=== PATIENT | female | born 2000 | race Caucasian/White ===

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

== ENCOUNTER → 2019-01-28 05:50 | Observation (INO) ==
[2019-01-28 03:53] LABS: Bilirubin,Urine Negative (Negative); Blood,Urine Negative (Negative); Clarity,Urine Clear (Clear); Color,Urine Yellow (Yellow); Glucose,Urine (UA) Normal (Normal); Ketones,Urine Negative (Negative); Leukocyte Esterase,Urine Small (Negative); Nitrite,Urine Negative (Negative); PH,Urine 6.5 pH Units (5.0-8.0); Protein,Urine Trace mg/dL (Neg-Trace); Urobilinogen,Urine Normal (Normal)
[2019-01-28 03:56] LABS: Bacteria,Urine Moderate per hpf (None-Few); Hyaline Casts,Urine None Seen per lpf (None-Few); Squamous Epithelial Cell,Urine Many per lpf (None-Few); WBC,Urine 15-30 per hpf (0-3)
[2019-01-28 04:05] LABS: Amphetamine Screen,Urine Negative ng/mL (Cutoff=1000); Barbiturate Screen,Urine Negative ng/mL (Cutoff=200); Benzodiazepines Screen,Urine Negative ng/mL (Cutoff=200); Cannabinoid Screen,Urine Negative ng/mL (Cutoff = 50); Cocaine Screen,Urine Negative ng/mL (Cutoff= 300); Opiate Screen,Urine Negative ng/mL (Cutoff=300); Phencyclidine Screen,Urine Negative ng/mL (Cutoff=25)
[2019-01-28 04:22] LABS: RBC,Urine 0-3 per hpf (0-3)
[2019-01-28 04:51] LABS: Basophils % 0.3 %; Eosinophils # 0.1 K/mcL (0.0-0.6); Eosinophils % 0.8 %; Hematocrit 31.9 % (35.3-44.9); Hemoglobin 10.1 g/dL (11.5-15.4); Immature Granulocytes % 0.6 % (0-4); Lymphocytes # 1.3 K/mcL (0.6-4.6); Lymphocytes % 13.4 %; Mean Corpuscular HGB Conc 31.7 g/dL (31.6-35.5); Mean Corpuscular Hemoglobin 26.6 pg (28.0-33.3); Mean Corpuscular Volume 84.2 fL (83.0-100.0); Mean Platelet Volume 13.5 fL (9.4-12.4); Monocytes # 0.7 K/mcL (0.0-1.3); Monocytes % 7.1 %; Neutrophils # 7.6 K/mcL (1.6-8.9); Platelet Count 128 K/mcL (140-400); Red Blood Count 3.79 M/mcL (3.82-4.97); Red Cell Distribution Width 14.6 % (11.5-14.5); Segmented Neutrophils % 77.8 %; White Blood Count 9.8 K/mcL (4.3-11.1)
[2019-01-28 05:10] LABS: Alanine Aminotransferase 21 Units/L (7-52); Albumin 3.3 g/dL (3.5-5.7); Albumin/Globulin Ratio 1.2 (1.1-2.2); Alkaline Phosphatase 55 Units/L (34-104); Amylase 29 Units/L (29-103); Aspartate Amino Transferase 21 Units/L (13-39); BUN/Creatinine Ratio 23 (6-26); Bilirubin,Total 0.4 mg/dL (0.3-1.0); Blood Urea Nitrogen 10 mg/dL (6-20); Calcium 8.8 mg/dL (8.6-10.3); Carbon Dioxide 23 mEq/L (23-29); Chloride 104 mEq/L (98-107); Globulin 2.7 g/dL (2.4-3.5); Glucose 87 mg/dL (70-105); Lipase 20 Units/L (11-82); Osmolality,Calculated 282 (280-300); Potassium 3.9 mEq/L (3.5-5.1); Sodium 137 mEq/L (136-145); eGFR For African Americans > 60 (> 60); eGFR For Non-African Americans > 60 (> 60)
[~2019-01-28 05:50] MED LIST: Famotidine 20 MG/2 ML VIAL IVP ONE; Ringers Solution, Lactated 1,000 ML IVC ONE
== END | disposition home or self-care (01) ==
LOC: 1NENULAB
PROVIDERS: ADMIT Advanced Practice Midwife; ATTEND Advanced Practice Midwife

== ENCOUNTER → 2019-02-18 01:05 | Observation (INO) | END | disposition home or self-care (01) | LOC: 1NENULAB | PROVIDERS: ADMIT Advanced Practice Midwife; ATTEND Advanced Practice Midwife ==

== ENCOUNTER → 2019-03-02 13:12 | Observation (INO) ==
[2019-03-02 12:15] LABS: Bilirubin,Urine Small (Negative); Blood,Urine Negative (Negative); Clarity,Urine Cloudy (Clear); Color,Urine Yellow (Yellow); Glucose,Urine (UA) Normal (Normal); Ketones,Urine Negative (Negative); Leukocyte Esterase,Urine Trace (Negative); Nitrite,Urine Negative (Negative); PH,Urine 7.5 pH Units (5.0-8.0); Protein,Urine Trace mg/dL (Neg-Trace); Urobilinogen,Urine Normal (Normal)
[2019-03-02 12:24] LABS: Amphetamine Screen,Urine Negative ng/mL (Cutoff=1000); Barbiturate Screen,Urine Negative ng/mL (Cutoff=200); Benzodiazepines Screen,Urine Negative ng/mL (Cutoff=200); Cannabinoid Screen,Urine Negative ng/mL (Cutoff = 50); Cocaine Screen,Urine Negative ng/mL (Cutoff= 300); Opiate Screen,Urine Negative ng/mL (Cutoff=300); Phencyclidine Screen,Urine Negative ng/mL (Cutoff=25)
[2019-03-02 12:31] LABS: Hyaline Casts,Urine None Seen per lpf (None-Few); Squamous Epithelial Cell,Urine Many per lpf (None-Few)
[2019-03-02 12:32] LABS: Basophils % 0.3 %; Eosinophils # 0.1 K/mcL (0.0-0.6); Eosinophils % 0.6 %; Hematocrit 35.7 % (35.3-44.9); Hemoglobin 11.9 g/dL (11.5-15.4); Immature Granulocytes % 0.5 % (0-4); Lymphocytes # 1.2 K/mcL (0.6-4.6); Lymphocytes % 12.2 %; Mean Corpuscular HGB Conc 33.3 g/dL (31.6-35.5); Mean Corpuscular Hemoglobin 27.4 pg (28.0-33.3); Mean Corpuscular Volume 82.1 fL (83.0-100.0); Mean Platelet Volume 12.6 fL (9.4-12.4); Monocytes # 0.8 K/mcL (0.0-1.3); Monocytes % 8.4 %; Neutrophils # 7.6 K/mcL (1.6-8.9); Platelet Count 130 K/mcL (140-400); Red Blood Count 4.35 M/mcL (3.82-4.97); Red Cell Distribution Width 17.5 % (11.5-14.5); White Blood Count 9.8 K/mcL (4.3-11.1)
[2019-03-02 12:46] LABS: Alanine Aminotransferase 52 Units/L (7-52); Aspartate Amino Transferase 56 Units/L (13-39); BUN/Creatinine Ratio 12 (6-26); Blood Urea Nitrogen 6 mg/dL (6-20); Lactate Dehydrogenase 198 Units/L (140-271); Uric Acid 3.1 mg/dL (2.3-7.6); eGFR For African Americans > 60 (> 60); eGFR For Non-African Americans > 60 (> 60)
[2019-03-02 14:10] LABS: Yeast,Urine Few per hpf (None Seen)
[2019-03-02 14:11] LABS: Bacteria,Urine Many per hpf (None-Few); RBC,Urine 0-3 per hpf (0-3)
== END | disposition home or self-care (01) ==
LOC: 1NENULAB
PROVIDERS: ADMIT Advanced Practice Midwife; ATTEND Advanced Practice Midwife

== ENCOUNTER 2019-04-21 10:20 | Inpatient (IN) ==
[2019-04-21] MEDS ORDERED: Ringers Solution, Lactated 1,000 ML IVC ONE (10:23)
[2019-04-21] MEDS ORDERED: Metoclopramide 10 MG/2 ML VIAL IVP ONE (10:23)
[2019-04-21] MEDS ORDERED: Famotidine 20 MG/2 ML VIAL IVP ONE (10:23)
[2019-04-21] MEDS ORDERED: Oxytocin 20 units/ LR 1000 mL 20 UNIT/1,000 ML BAG IVC ONE (10:23)
[2019-04-21] MEDS ORDERED: Ringers Solution, Lactated 1,000 ML IVC SCH (10:30)
[2019-04-21 11:17] LABS: Basophils % 0.3 %; Hemoglobin 10.7 g/dL (11.5-15.4)
[2019-04-21 11:19] LABS: Eosinophils # 0.2 K/mcL (0.0-0.6); Eosinophils % 2.9 %; Hematocrit 33.3 % (35.3-44.9); Immature Granulocytes % 0.6 % (0-4); Immature Platelets 17.3 % (1.1-6.1); Lymphocytes # 1.7 K/mcL (0.6-4.6); Lymphocytes % 24.8 %; Mean Corpuscular HGB Conc 32.1 g/dL (31.6-35.5); Monocytes # 0.6 K/mcL (0.0-1.3); Monocytes % 8.8 %; Neutrophils # 4.3 K/mcL (1.6-8.9); Platelet Count 109 K/mcL (140-400); Red Blood Count 4.11 M/mcL (3.82-4.97); Red Cell Distribution Width 16.1 % (11.5-14.5); Segmented Neutrophils % 62.6 %; White Blood Count 6.9 K/mcL (4.3-11.1)
[2019-04-21 11:23] LABS: Amphetamine Screen,Urine Negative ng/mL (Cutoff=1000); Barbiturate Screen,Urine Negative ng/mL (Cutoff=200); Benzodiazepines Screen,Urine Negative ng/mL (Cutoff=200); Cannabinoid Screen,Urine Negative ng/mL (Cutoff = 50); Cocaine Screen,Urine Negative ng/mL (Cutoff= 300); Opiate Screen,Urine Negative ng/mL (Cutoff=300); Phencyclidine Screen,Urine Negative ng/mL (Cutoff=25)
[2019-04-21] MEDS ORDERED: Ondansetron 4 MG/2 ML VIAL IVP ONE (11:35)
[2019-04-21] MEDS ORDERED: *HR* OxyCODONE Immed Rel 5 MG TABLET PO PRN ×2 (11:35→16:04)
[2019-04-21] MEDS ORDERED: *HR* HYDROmorphone PF 0.5 MG/0.5 ML SYRINGE IVP PRN (11:35)
[2019-04-21] MEDS ORDERED: Acetaminophen IV 1,000 MG/100 ML INFUS..BTL IVPB ONE (11:35)
[2019-04-21] MEDS ORDERED: *HR* Promethazine 25 MG/ML VIAL IVP PRN (11:35)
[2019-04-21] MEDS ORDERED: CeFAZolin Syr 3,000MG/30 ML 3,000 MG/30 ML SYRINGE IVPB ONE (11:44)
[2019-04-21 12:00] LABS: Protein/Creatinine Ratio,Urine 0.21 mg/mg (0.00-0.20)
[2019-04-21] MEDS ORDERED: *HR* Morphine Sulfate/PF 10 MG/10 ML AMPUL ONE (12:01)
[2019-04-21] MEDS ORDERED: Dexamethasone 4 MG/ML VIAL ONE (12:20)
[2019-04-21] MEDS ORDERED: Ondansetron 4 MG/2 ML VIAL ONE (12:20)
[2019-04-21] MEDS ORDERED: EPHEDrine 50 MG/ML VIAL ONE (12:21)
[2019-04-21 12:30] LABS: Alanine Aminotransferase 12 Units/L (7-52); Aspartate Amino Transferase 16 Units/L (13-39); BUN/Creatinine Ratio 20 (6-26); Blood Urea Nitrogen 10 mg/dL (6-20); Lactate Dehydrogenase 236 Units/L (140-271); Uric Acid 3.3 mg/dL (2.3-7.6); eGFR For African Americans > 60 (> 60); eGFR For Non-African Americans > 60 (> 60)
[2019-04-21] MEDS ORDERED: Ringers Solution, Lactated 1,000 ML ONE (12:37)
[2019-04-21] MEDS ORDERED: *HR* Oxytocin 10 UNIT/ML VIAL IM ONE (12:37)
[2019-04-21] MEDS: Oxytocin 20 units/ LR 1000 mL 20 UNIT/1,000 ML BAG IVC SCH ×2 (14:37→15:39)
[2019-04-21] MEDS ORDERED: Metoclopramide 10 MG/2 ML VIAL IVP PRN (16:04)
[2019-04-21] MEDS ORDERED: Oxytocin 20 units/ LR 1000 mL 20 UNIT/1,000 ML BAG IVC SCH (16:04)
[2019-04-21] MEDS ORDERED: Sennosides 8.6 MG TABLET PO PRN (16:04)
[2019-04-21] MEDS ORDERED: Ondansetron 4 MG/2 ML VIAL IVP PRN (16:04)
[2019-04-21] MEDS: cephALEXin 500 MG CAPSULE PO SCH ×2 (17:36→23:05)
[2019-04-21] MEDS: metroNIDAZOLE 500 MG TABLET PO SCH ×2 (17:36→23:05)
[2019-04-21] MEDS: Acetaminophen 325 MG TABLET PO SCH ×2 (17:46→23:06)
[2019-04-21] MEDS: Ibuprofen 600 MG TABLET PO SCH ×2 (17:46→23:06)
[2019-04-22] MEDS: Ibuprofen 600 MG TABLET PO SCH ×3 (05:57→20:49)
[2019-04-22] MEDS: Acetaminophen 325 MG TABLET PO SCH ×3 (05:57→20:50)
[2019-04-22] MEDS: Prenatal Vit/FA 1 EACH TABLET PO SCH (09:01)
[2019-04-22] MEDS: Simethicone 80 MG TAB.CHEW PO PRN ×2 (09:01→16:31)
[2019-04-22] MEDS: metroNIDAZOLE 500 MG TABLET PO SCH ×3 (09:01→20:49)
[2019-04-22] MEDS: cephALEXin 500 MG CAPSULE PO SCH ×3 (09:01→20:49)
[2019-04-22] MEDS ORDERED: Lanolin 7 G OINT...G. TP PRN (22:47)
[2019-04-23] MEDS: Ibuprofen 600 MG TABLET PO SCH (06:27)
[2019-04-23] MEDS: Acetaminophen 325 MG TABLET PO SCH (06:28)
[2019-04-23 07:46] VITALS: BP 124/78
[2019-04-23] MEDS: metroNIDAZOLE 500 MG TABLET PO SCH (08:34)
[2019-04-23] MEDS: cephALEXin 500 MG CAPSULE PO SCH (08:34)
[2019-04-23] MEDS: Prenatal Vit/FA 1 EACH TABLET PO SCH (08:34)
== END 2019-04-23 14:02 | disposition home or self-care (01) | DRG 787 ==
LOC: 1NENULAB 10:20 → 1NENUOBS 16:04
PROVIDERS: ADMIT Obstetrics & Gynecology; ATTEND Obstetrics & Gynecology